=== PATIENT | male | born 1965 | race Caucasian/White ===

== ENCOUNTER 2017-08-30 21:15 | Emergency (ER) | payer SELFPAY ==
[2017-08-30 22:06] LABS: BASOPHILS 0.1 % (0-2); EOSINOPHILS 0.2 % (0-7); HEMATOCRIT 49.1 % (42.0-54.0); HEMOGLOBIN 17.3 g/dL (13.5-17.5); IMMATURE GRANULOCYTES 0.2 % (0-5); LYMPHOCYTES 7.2 % (15-50); MCH 31.2 pg (26.0-34.0); MCHC 35.2 g/dL (31.0-37.0); MCV 88.5 fL (80.0-100.0); MEAN PLATELET VOLUME 10.9 fL (7.4-10.4); NEUTROPHILS 82.3 % (40-80); PLATELET COUNT 159 10x3/uL (130-400); RBC 5.55 10x6/uL (4.20-6.10); RDW 12.7 % (11.5-14.5); WBC 12.4 10x3/uL (4.8-10.8)
[2017-08-30 22:11] LABS: APPEARANCE CLEAR (CLEAR); BILIRUBIN NEGATIVE (NEGATIVE); COLOR YELLOW (YELLOW); GLUCOSE NEGATIVE (NEGATIVE); KETONE NEGATIVE (NEGATIVE); NITRITE NEGATIVE (NEGATIVE); PROTEIN NEGATIVE (NEGATIVE); SPECIFIC GRAVITY 1.015 (1.005-1.020); UROBILINOGEN NORMAL (NORMAL)
[2017-08-30 22:14] LABS: BACTERIA FEW /hpf (NONE SEEN); WHITE CELLS - URINE 0-5 /hpf (0-5)
[2017-08-30 22:18] LABS: ALBUMIN 4.2 g/dL (3.4-5.0); ALKALINE PHOSPHATASE 67 U/L (46-116); ALT (SGPT) 42 U/L (10-68); BILIRUBIN - TOTAL 0.81 mg/dL (0.2-1.3); CALC OSMOLALITY 288 mosm/kg (275-300); CALCIUM 9.5 mg/dL (8.5-10.1); CHLORIDE - SERUM 103 mmol/L (98-107); CREATININE - SERUM 1.9 mg/dL (0.6-1.3); GLUCOSE 175 mg/dL (74-106); PROTEIN - SERUM 7.6 g/dL (6.4-8.2); SODIUM 140 mmol/L (136-145); UREA NITROGEN 28 mg/dL (7-18); eGFR NON AFRICAN AMERICAN 40 mL/min (90-120)
[2017-08-30 22:23] LABS: LIPASE 133 U/L (73-393)
[2017-08-30 22:24] LABS: TROPONIN-I < 0.017 ng/mL (0.000-0.060)
== END 2017-08-31 00:05 | disposition home or self-care (01) ==
LOC: D.ER 21:15
PROVIDERS: Family Medicine
DX: N20.1 Calculus of ureter (principal); N20.0 Calculus of kidney; I10 Essential (primary) hypertension